=== PATIENT | female | born 1990 | race Caucasian/White ===

== ENCOUNTER 2019-09-14 21:50 | Emergency (ER) | payer OTHER ==
[~2019-09-14] VITALS: Ht 149.9 cm; Wt 49.9 kg
[2019-09-14 22:25] VITALS: BP 145/90
--- NOTE | 2019-09-14 22:28 | NUR ---
TO LOBBY A/W BED AMBULATORY
--- NOTE | 2019-09-14 23:30 | NUR ---
PATIENT LWBS AT THIS TIME.
--- NOTE | 2019-09-15 00:30 | NUR ---
CALLED PT IN LOBBY, NO ANSWER
== END 2019-09-14 23:30 | disposition left against medical advice (07) ==
LOC: MED 21:50
DX: R42 Dizziness and giddiness (principal); R51 Headache; Z53.21 Procedure and treatment not carried out due to patient leaving prior to being seen by health care provider